=== PATIENT | male | born 1980 | race African-American/Black ===

== ENCOUNTER 2020-07-22 13:43 | Outpatient (REF) | payer OTHER, SELFPAY ==
--- NOTE | ~2020-07-22 | CT_ITS ---
EXAMINATION: CT HEAD WITH/WITHOUT CONTRAST CLINICAL INFORMATION: Meningioma. COMPARISON: MRI scan of the brain 10/16/2017. TECHNIQUE: Contiguous axial imaging was performed from the skull base to vertex before and after the administration of 85 mL of Omnipaque 350 intravenous contrast. Coronal and sagittal reformatted images were generated at the technologist workstation. This CT examination was performed using dose optimization techniques as appropriate, variously including the following: *Automated exposure control *Adjustment of mA and/or kV according to patient size (this includes techniques or standardized protocols for targeted exams where dose is matched to indication/reason for exam; i.e. extremities or head) *Use of iterative reconstruction technique DLP: 1699 mGy-cm FINDINGS: There are sequelae of a high left parietal craniotomy, and there there are mild gliotic and encephalomalacic changes underlying the craniotomy site. There has been resection of the previously demonstrated large parafalcine enhancing mass. The previously demonstrated extensive vasogenic edema, mass effect and midline shift have resolved. There is no abnormal enhancement in or around the resection bed. There is no evidence of acute intracranial hemorrhage or territorial infarction. No new abnormal mass effect or midline shift is seen. Overall, stewart to white matter differentiation is well preserved. No extra-axial fluid collections are identified. There is no new abnormal enhancement elsewhere. The ventricles are normal in size. There are no acute osseous or soft tissue abnormalities. The mastoid air cells and the visualized paranasal sinuses are well-aerated. CT/CT head/brain wo/w con IMPRESSION: 1. There are sequelae of a high left parietal craniotomy with resection of the previously noted large enhancing mass. There are mild gliotic and encephalomalacic mass changes in the resection bed. There is complete interval resolution of the previously demonstrated vasogenic edema, mass effect and midline shift. 2. There are no acute bleeds or infarcts. No new lesions are demonstrated.
[2020-07-22] MEDS: iohexoL 350 MG/ML 100 ML INFUS..BTL IV (15:18)
== END 2020-07-22 13:44 | disposition home or self-care (01) ==
LOC: HO.CT 13:43
PROVIDERS: Visit Provider Psychiatry & Neurology Neurology
DX: D32.9 Benign neoplasm of meninges, unspecified (principal)
CPT/HCPCS: 70470; Q9967

== ENCOUNTER 2021-08-04 10:58 | Outpatient (REF) | payer OTHER, SELFPAY ==
[2021-08-04 12:31] LABS: Anion Gap 11 (12-20); Blood Urea Nitrogen 14 mg/dL (9-16); Calcium 9.5 mg/dL (8.4-10.2); Carbon Dioxide 26 mmol/L (22-29); Chloride 107 mmol/L (96-108); Estimated Glomerular Filt Rate > 60; Glucose Random 72 mg/dL (60-115); Sodium 140 mmol/L (135-145)
[2021-08-09 00:52] LABS: Levetiracetam Keppra 12.4 mcg/mL (12.0-46.0)
== END 2021-08-04 10:59 | disposition home or self-care (01) ==
LOC: HO.LAB 10:58
PROVIDERS: Visit Provider Psychiatry & Neurology Neurology
DX: G40.909 Epilepsy, unspecified, not intractable, without status epilepticus (principal); Z79.899 Other long term (current) drug therapy
CPT/HCPCS: 36415; 80048; 80177

== ENCOUNTER 2022-02-21 13:14 | Outpatient (REF) | payer OTHER, SELFPAY ==
--- NOTE | ~2022-02-21 | XR_ITS ---
EXAMINATION: XR KNEE AP STANDING, BILATERAL XR KNEE, RIGHT XR KNEE, LEFT CLINICAL INFORMATION: Pain. COMPARISON: None TECHNIQUE: Standing AP lateral and sunrise view of both knees. FINDINGS: RIGHT: Bone alignment is normal. No fracture or dislocation is seen. There is arthritis at the patellofemoral joint. There is an osteophyte at the quadriceps tendon insertion to the patella. There is no appreciable joint effusion. LEFT: Bone alignment is normal. No fracture or dislocation is seen. There are osteophytes at the patellofemoral joint. There is an osteophyte at the quadriceps tendon insertion to the patella. There is no joint effusion. 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
--- NOTE | ~2022-02-21 | XR_ITS ---
EXAMINATION: XR KNEE AP STANDING, BILATERAL XR KNEE, RIGHT XR KNEE, LEFT CLINICAL INFORMATION: Pain. COMPARISON: None TECHNIQUE: Standing AP lateral and sunrise view of both knees. FINDINGS: RIGHT: Bone alignment is normal. No fracture or dislocation is seen. There is arthritis at the patellofemoral joint. There is an osteophyte at the quadriceps tendon insertion to the patella. There is no appreciable joint effusion. LEFT: Bone alignment is normal. No fracture or dislocation is seen. There are osteophytes at the patellofemoral joint. There is an osteophyte at the quadriceps tendon insertion to the patella. There is no joint effusion. 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
--- NOTE | ~2022-02-21 | XR_ITS ---
EXAMINATION: XR KNEE AP STANDING, BILATERAL XR KNEE, RIGHT XR KNEE, LEFT CLINICAL INFORMATION: Pain. COMPARISON: None TECHNIQUE: Standing AP lateral and sunrise view of both knees. FINDINGS: RIGHT: Bone alignment is normal. No fracture or dislocation is seen. There is arthritis at the patellofemoral joint. There is an osteophyte at the quadriceps tendon insertion to the patella. There is no appreciable joint effusion. LEFT: Bone alignment is normal. No fracture or dislocation is seen. There are osteophytes at the patellofemoral joint. There is an osteophyte at the quadriceps tendon insertion to the patella. There is no joint effusion. XR/XR knee LT 2V IMPRESSION: Mild arthritis at the bilateral patellofemoral joints.
== END 2022-02-21 13:15 | disposition home or self-care (01) ==
LOC: HO.HOSX 13:14
PROVIDERS: Visit Provider Physician Assistant
DX: M25.561 Pain in right knee (principal); M25.562 Pain in left knee
CPT/HCPCS: 73560; 73565; 99202

== ENCOUNTER 2024-12-24 14:44 | Outpatient (AMB) | payer OTHER, SELFPAY ==
--- OUTSIDE RECORDS SUMMARY | 2024-12-24 14:50 | XMS_ITS | Continuity of Care Document ---
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 Source COVID-19, mRNA, LNP-S, PF, 30 mcg/0.3 mL dose 2020 [facility], () Not Given COVID-19, mRNA, LNP-S, PF, 30 mcg/0.3 mL dose DoD COVID-19, mRNA, LNP-S, PF, 30 mcg/0.3 mL dose 2020 BOGDASARIAN, () Not Given COVID-19, mRNA, LNP-S, PF, 30 mcg/0.3 mL dose DoD COVID-19, mRNA, LNP-S, PF, 30 mcg/0.3 mL dose 2020 [facility]IAN, () Not Given COVID-19, mRNA, LNP-S, PF, 30 mcg/0.3 mL dose DoD influenza, injectable, quadrivalent, preservative free 2019 [facility], () Not Given influenza , injectabl e, quadrival ent, preservat woody free DoD Influenza, injectable, MDCK, quadrivalent, preservative 2018 [facility], () Not Given Influenza , injectabl e, MDCK, quadrival ent, preservat woody DoD hepatitis B vaccine, adult dosage 2 2018 [id number] [facility] hepatitis B vaccine, adult dosage DoD poliovirus vaccine, inactivated 1 2018 [id number] Sanofi Pasteur (PMC) complet ed polioviru s vaccine, inactivat ed DoD hepatitis B vaccine, adult dosage 1 2018 [id number] [facility] ([facility] complet ed hepatitis B vaccine, adult dosage DoD meningococcal polysaccharid e (groups A, C, Y and W-135) diphtheria toxoid conjugate vaccine (MCV4P) 1 2018 [id number] Sanofi Pasteur (PMC) complet ed meningoco ccal polysacch aride (groups A, C, Y and W-135) diphtheri a toxoid conjugate vaccine (MCV4P) DoD tetanus toxoid, reduced diphtheria toxoid, and acellular pertu is vaccine, adsorbed 1 2018 [id number] 115 [employer] (SKB) complet ed tetanus toxoid, reduced diphtheri a toxoid, and acellular pertussis vaccine, adsorbed DoD Adenovirus, type 4 and type 7, live, oral 1 2018 [id number] 143 [employer] (BRR) complet ed Adenoviru s, type 4 and type 7, live, oral DoD measles, mumps and rubella virus vaccine 1 2018 [id number] 03 Unknown (UNK) Not Given measles, mumps and rubella virus vaccine DoD varicella virus vaccine 1 2018 UNK 21 Unknown (UNK) Not Given varicella virus vaccine DoD hepatitis A vaccine, adult dosage 1 2018 UNK 52 Unknown (UNK) Not Given hepatitis A vaccine, adult dosage DoD Encounters Combined list of: 1) Encounters from Department of Veterans Affairs facilities going backup to the last 18 months, not all VA inpatient encounters are included; 2) Encounters from the Department of Defense facilities going backup to 280 months. Location Location Details Encounter Type Encounter Number Reason For Visit Attending Provider ADM Date DC Date Status Disposition Source [facility] Optometry ) OUTPATIENT [id number] Notes Entered by: MIGUEL SHEIKH RTJulian 22 Aug 2018 1010 ------- ------- ------- ------- -- Initial Entry Eye Exam ANDIE LUQUE 08/22 Released w/o Limitations [facility] EP Optomet ry) [facility]) OUTPATIENT [id number] Notes Entered by: Marcelino LIVINGSTON 26 Aug 2018 0820 ------- ------- ------- ------- -- IET JAMEEL CAMPA 08/26 Released w/o Limitations [facility] Primary Care) [facility]) OUTPATIENT [id number] Notes Entered by: Willian PATRICIA 13 Sep 2018 0535 ------- ------- ------- ------- -- LBP CHAI PATRICIA 09/13 Released w/o Limitations [facility]ica l [facility] ) [facility]) OUTPATIENT [id number] Notes Entered by: Arelis HAY 29 Oct 2018 1220 ------- ------- ------- ------- -- IET JANELL AIKEN 10/29 Released w/o Limitations [facility] Primary [facility]) Procedures Combined list of: 1) Procedures from Department of Veterans Affairs facilities going back up to thelast 18 months, not all VA non-surgical procedures are included; 2) All procedures from the Department of Defense facilities. Procedure Procedure Type Code Date Perfomer Comments [facility] e Exercises A isted Exercises For ROM Exercises Assisted Exercises For ROM 60006 [id number] CHAI PATRICIA [facility] Ophthalmological New Patient Start Intermediate Level Care Ophthalmological New Patient Start Intermediate Level Care [address] [facility] Immunization Administration Each Additional Vaccine Immunization Administration Each Additional Vaccine 81737 JAMEEL LIVINGSTON [facility] Immunization Administration One Vaccine Immunization Administration One Vaccine 96911 JAMEEL LIVINGSTON Vaccines Viral Polio, Inactivated (Salk) Vaccines Viral Polio, Inactivated (Salk) 21226 JAMEEL LIVINGSTON Tdap Vaccine Tdap Vaccine 67956 JAMEEL LIVINGSTON Immunization Admin Intranasal / Oral Each Additional Vaccine Immunization Admin Intranasal / Oral Each Additional Vaccine 20131 JAMEEL LIVINGSTON Vaccines Adenovirus Type 4 Live, For Oral Use Vaccines Adenovirus Type 4 Live, For Oral Use 84996 JAMEEL LIVINGSTON Vaccines Adenovirus Type 7 Live, For Oral Use Vaccines Adenovirus Type 7 Live, For Oral Use 88678 JAMEEL LIVINGSTON HEPATITIS B VACCINE (HEPB), ADULT DOSAGE, 3 DOSE SCHEDULE, FOR INTRAMUSCULAR USE 9 [facility] THERAPEUTIC PROCEDURE, 1 OR MORE AREAS, EACH 15 MINUTES; THERAPEUTIC EXERCISES TO DEVELOP STRENGTH AND ENDURANCE, RANGE OF MOTION AND FLEXIBILITY 9 [facility] ADENOVIRUS VACCINE, TYPE 7, LIVE, FOR ORAL USE 9 [facility] OPHTHALMOLOGICAL SERVICES: MEDICAL EXAMINATION AND EVALUATION WITH INITIATION OF DIAGNOSTIC AND TREATMENT PROGRAM; INTERMEDIATE, NEW PATIENT 9 [facility] EAR MOLD/INSERT, NOT DISPOSABLE, ANY TYPE 9 [facility] Social History Combined list of available smoking, tobacco, and other social history from Department of Defense and Veterans Affairs facilities. Social History Type Response Date Comment Sourc e This section is an empty social history section. DoD
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
== END 2024-12-24 15:23 | disposition home or self-care (01) ==
LOC: HO.HSM 14:44
PROVIDERS: Visit Provider Registered Nurse
DX: G40.909 Epilepsy, unspecified, not intractable, without status epilepticus (principal); D32.9 Benign neoplasm of meninges, unspecified; S06.0X0D Concussion without loss of consciousness, subsequent encounter
CPT/HCPCS: 99214

== ENCOUNTER → 2024-12-24 14:44 | Outpatient (BNVA) | payer OTHER, SELFPAY | PROVIDERS: Visit Provider Registered Nurse | DX: S06.0X0D Concussion without loss of consciousness, subsequent encounter (principal); D32.9 Benign neoplasm of meninges, unspecified; G40.909 Epilepsy, unspecified, not intractable, without status epilepticus; X58.XXXD Exposure to other specified factors, subsequent encounter; Z79.899 Other long term (current) drug therapy | CPT/HCPCS: 99212 ==